=== PATIENT | female | born 1950 | race Two or more races ===

== ENCOUNTER → 2023-09-15 | Emergency (ER) | payer OTHER ==
[~2023-09-15] VITALS: Ht 154.9 cm; Wt 62.1 kg
[~2023-09-15] MED LIST: AMBIEN5 MG PO; ATACAND32 MG; CRESTOR20 MG; ELIQUIS5 MG; ZETIA10 MG
[2023-09-15 08:16] LABS: HEMOGLOBIN 14.4 g/dL (12.0-15.00); MEAN CELL VOLUME 87.5 fL (80.00-100.00); MEAN CORPUSCULAR HEMOGLOBIN 28.6 pg (27.00-32.0); MEAN CORPUSCULAR HGB CONC 32.7 g/dl (32.0-36.0); PLATELET COUNT 281 K/uL (150-450); RED BLOOD COUNT 5.03 M/uL (4.00-6.00); RED CELL DISTRIBUTION WIDTH 15.5 % (11.5-14.5)
[2023-09-15 08:22] LABS: CALCIUM 9.2 mg/dL (8.5-10.1); CREATININE SERUM 0.86 mg/dL (0.55-1.02); GFR 64.32; POTASSIUM 4.87 mEq/L (3.5-5.1)
== END | disposition home or self-care (01) ==
LOC: EDBD 05:13 → ER 05:13
DX: K52.9 Noninfective gastroenteritis and colitis, unspecified (principal); Z88.0 Allergy status to penicillin
CPT/HCPCS: 36415; 96365; 96372; 99284; J2405; J2765; J3490

== ENCOUNTER 2023-10-08 12:48 | Emergency (ER) | payer OTHER ==
[~2023-10-08] VITALS: Ht 154.9 cm; Wt 63.5 kg
[2023-10-08] MEDS ORDERED: TYLENOL ARTHRI650 MG PO (18:50)
[2023-10-08] MEDS ORDERED: MEDROLPACK PO (18:50)
== END 2023-10-08 19:18 | disposition home or self-care (01) ==
LOC: ER 12:48
DX: M79.662 Pain in left lower leg (principal); Z88.0 Allergy status to penicillin

== ENCOUNTER 2024-05-26 14:18 | Emergency (ER) | payer OTHER ==
[~2024-05-26] VITALS: Ht 154.9 cm; Wt 64.9 kg
[~2024-05-26 14:18] MED LIST changes: +MEDROLPACK PO; +TYLENOL ARTHRI650 MG PO
[2024-05-26] MEDS ORDERED: SERTRALINE20 MG/1 ML PO (14:37)
[2024-05-26] MEDS ORDERED: NORVASC2.5 M1 PO (14:37)
[2024-05-26] MEDS ORDERED: FOSAMAX70 MG PO (14:37)
[2024-05-26] MEDS ORDERED: FAMOTIDINE/PF 20 MG/2 ML VIAL IV ONE (16:15)
[2024-05-26] MEDS ORDERED: 0.9 % SODIUM CHLORIDE 500 ML IV ONE (16:15)
[2024-05-26 16:56] LABS: HEMATOCRIT 39.1 % (36.0-45.00); HEMOGLOBIN 13.1 g/dL (12.0-15.00); MEAN CELL VOLUME 86.4 fL (80.00-100.00); MEAN CORPUSCULAR HEMOGLOBIN 28.9 pg (27.00-32.0); MEAN CORPUSCULAR HGB CONC 33.4 g/dl (32.0-36.0); PLATELET COUNT 237 K/uL (150-450); RED BLOOD COUNT 4.53 M/uL (4.00-6.00); RED CELL DISTRIBUTION WIDTH 15.4 % (11.5-14.5)
[2024-05-26 17:24] LABS: URINE APPEARANCE Clear; URINE BILIRRUBIN Negative (NEGATIVE); URINE BLOOD Small; URINE COLOR Yellow; URINE GLUCOSE Negative (NEGATIVE); URINE KETONE Negative (NEGATIVE); URINE LEUKOCYTE Moderate; URINE NITRATE Negative; URINE PROTEIN 30 (NEGATIVE); URINE UROBILINOGEN 0.2 E.U./dl
[2024-05-26 17:25] LABS: URINE BACTERIA 4708.3 uL (0.0-1933); URINE EPITHELIAL CELLS 67.8 uL (0.0-38.8); URINE RBC 139.4 uL (0.0-20.8); URINE WBC 37.2 uL (0.0-23.2)
[2024-05-26 17:44] LABS: ALBUMIN 3.8 gm/dL (3.4-5.0); BILIRUBIN TOTAL 0.79 mg/dL (0.3-1.2); CALCIUM 9.8 mg/dL (8.5-10.1); CREATININE SERUM 0.73 mg/dL (0.55-1.02); GFR 77.72; GLOBULINA 3.8 G/DL (2.4-3.5); POTASSIUM 5.01 mEq/L (3.5-5.1); TOTAL PROTEIN 7.6 gm/dL (6.4-8.2)
[2024-05-26 17:45] LABS: URINE YEAST FEW /hpf
[2024-05-26] MEDS ORDERED: METRONIDAZOLE/SODIUM CHLORIDE 500 MG/100 ML PIGGYBACK IV ONE (17:45)
[2024-05-26] MEDS ORDERED: CIPROFLOXACIN IN 5 % DEXTROSE 400 MG/200 ML PIGGYBAG IV ONE (17:45)
[2024-05-26] MEDS ORDERED: KETOROLAC TROMETHAMINE 30 MG VIAL IV ONE (20:15)
[2024-05-26] MEDS ORDERED: PEPCID AC20 MG PO (20:40)
[2024-05-26] MEDS ORDERED: DICY20TA PO (20:40)
[2024-05-26] MEDS ORDERED: INTESTINEX680 M1 PO (20:40)
[2024-05-26] MEDS ORDERED: METRONIDAZOLE500 MG PO (20:40)
[2024-05-26] MEDS ORDERED: CIPRO500 MG PO (20:40)
[2024-05-26] MEDS ORDERED: PERCOGESIC EXT1 EACH PO (20:40)
== END 2024-05-26 21:52 ==
LOC: ER 14:18
PROVIDERS: General Practice; Nurse Practitioner Family
DX: K57.92 Diverticulitis of intestine, part unspecified, without perforation or abscess without bleeding (principal); R10.32 Left lower quadrant pain; R10.9 Unspecified abdominal pain; Z20.822 Contact with and (suspected) exposure to COVID-19; I10 Essential (primary) hypertension; Z88.0 Allergy status to penicillin
CPT/HCPCS: 36415; 74176; 96365; 99284; J0744; J1885; J3490 ×2; J7042

== ENCOUNTER 2024-08-17 12:43 | Inpatient (IN) | payer OTHER ==
[~2024-08-17] VITALS: Ht 152.4 cm; Wt 63.5 kg
[~2024-08-17 12:43] MED LIST changes: +CIPRO500 MG PO; +DICY20TA PO; +FOSAMAX70 MG PO; +INTESTINEX680 M1 PO; +METRONIDAZOLE500 MG PO; +NORVASC2.5 M1 PO; +PEPCID AC20 MG PO; +PERCOGESIC EXT1 EACH PO; +SERTRALINE20 MG/1 ML PO
[2024-08-17] MEDS ORDERED: SERTRALINE HCL25 MG PO (13:54)
--- NOTE | 2024-08-17 13:54 | NUR ---
PTE REFIERE DOOR ABDOMINAL Y INFLAMACION DE LOS DIVERTOULOS. PTE CON REFERIDO.
[2024-08-17] MEDS ORDERED: METRONIDAZOLE/SODIUM CHLORIDE 500 MG/100 ML PIGGYBACK IV ONE (14:30)
[2024-08-17] MEDS ORDERED: CIPROFLOXACIN IN 5 % DEXTROSE 400 MG/200 ML PIGGYBAG IV ONE (14:30)
[2024-08-17] MEDS ORDERED: FAMOTIDINE/PF 20 MG/2 ML VIAL IV ONE (14:30)
[2024-08-17] MEDS ORDERED: 0.9 % SODIUM CHLORIDE 500 ML IV ONE (14:30)
[2024-08-17] MEDS ORDERED: MEPERIDINE HCL/PF 25 MG/ML VIAL IM ONE (14:45)
[2024-08-17] MEDS ORDERED: ONDANSETRON HCL 2 MG/ML VIAL IV ONE (14:45)
--- NOTE | 2024-08-17 15:34 | NUR ---
SE REALIZA LABORATORIOS Y SE ADMINISTRA MEDICAMENTOS. SE OERIENTA A PTE QUIEN REFIERE [id number] Y ACEPTAR. PTE REHUSA TRATAMIENTO DE DEMEROL.
[2024-08-17 15:45] LABS: HEMATOCRIT 38.5 % (36.0-45.00); MEAN CELL VOLUME 85.6 fL (80.00-100.00); MEAN CORPUSCULAR HEMOGLOBIN 28.8 pg (27.00-32.0); MEAN CORPUSCULAR HGB CONC 33.6 g/dl (32.0-36.0); PLATELET COUNT 259 K/uL (150-450); RED CELL DISTRIBUTION WIDTH 15.6 % (11.5-14.5)
[2024-08-17 16:07] LABS: INR 1.05; PARTIAL THROMBOPLASTIN TIME 29.1 SECONDS (22.0-34.0); PROTHROMBIN TIME 11.4 SECONDS (9.0-11.5)
[2024-08-17 16:14] LABS: ALBUMIN 3.7 gm/dL (3.4-5.0); BILIRUBIN TOTAL 0.67 mg/dL (0.3-1.2); CALCIUM 9.1 mg/dL (8.5-10.1); CREATININE SERUM 0.72 mg/dL (0.55-1.02); GFR 78.96; GLOBULINA 3.2 G/DL (2.4-3.5); POTASSIUM 4.74 mEq/L (3.5-5.1); TOTAL PROTEIN 6.9 gm/dL (6.4-8.2)
[2024-08-17 18:27] LABS: URINE APPEARANCE Clear; URINE BILIRRUBIN Negative (NEGATIVE); URINE BLOOD Trace; URINE COLOR Yellow; URINE GLUCOSE Negative (NEGATIVE); URINE KETONE 15 (NEGATIVE); URINE LEUKOCYTE Moderate; URINE NITRATE Negative; URINE PROTEIN Trace (NEGATIVE); URINE UROBILINOGEN 0.2 E.U./dl
[2024-08-17 18:31] LABS: URINE BACTERIA 8062.6 uL (0.0-1933); URINE CAST 6.25 uL (0.0-1.40); URINE EPITHELIAL CELLS 131.2 uL (0.0-38.8); URINE RBC 27.9 uL (0.0-20.8); URINE WBC 235.9 uL (0.0-23.2)
[2024-08-17] MEDS ORDERED: 0.9 % SODIUM CHLORIDE 1,000 ML IV SCH (18:45)
[2024-08-17 19:00] LABS: URINE EPITHELIAL CELLS 0-4 /HPF
[2024-08-17] MEDS ORDERED: ACETAMINOPHEN 500 MG GEL..CAP PO PRN (19:15)
[2024-08-17] MEDS ORDERED: MORPHINE SULFATE 2 MG/ML CARTRIDGE IV SCH (20:00)
[2024-08-17] MEDS ORDERED: ZOLPIDEM TARTRATE 5 MG TABLET PO SCH (21:00)
[2024-08-17 23:59] VITALS: BP 104/69; O2SAT 96
[2024-08-18] MEDS ORDERED: METRONIDAZOLE/SODIUM CHLORIDE 100 ML IV SCH (01:00)
[2024-08-18 04:15] VITALS: BP 117/67; O2SAT 98
[2024-08-18] MEDS ORDERED: APIXABAN 5 MG TABLET PO SCH (05:00)
[2024-08-18] MEDS ORDERED: MORPHINE SULFATE 2 MG/ML CARTRIDGE IV PRN (08:00)
[2024-08-18 08:57] VITALS: BP 115/62; O2SAT 98
[2024-08-18] MEDS ORDERED: FAMOTIDINE/PF 20 MG in 0.9 % SODIUM CHLORIDE 8 ML IV PUSH SCH (09:00)
[2024-08-18] MEDS ORDERED: SERTRALINE HCL 25 MG TABLET PO SCH (09:00)
[2024-08-18] MEDS ORDERED: CIPROFLOXACIN IN 5 % DEXTROSE 200 ML IV SCH (09:00)
[2024-08-18] MEDS ORDERED: CANDESARTAN CILEXETIL 32 MG TABLET PO SCH (09:00)
[2024-08-18 16:47] VITALS: BP 124/69; O2SAT 96
[2024-08-18] MEDS ORDERED: AMLODIPINE BESYLATE 2.5 MG TABLET PO SCH (17:00)
[2024-08-18 23:00] VITALS: BP 106/55; O2SAT 97
[2024-08-19 08:00] VITALS: BP 106/59; O2SAT 96
[2024-08-19 08:04] LABS: HEMATOCRIT 37.4 % (36.0-45.00); HEMOGLOBIN 12.5 g/dL (12.0-15.00); MEAN CORPUSCULAR HEMOGLOBIN 29.4 pg (27.00-32.0); MEAN CORPUSCULAR HGB CONC 33.4 g/dl (32.0-36.0); PLATELET COUNT 243 K/uL (150-450); RED BLOOD COUNT 4.25 M/uL (4.00-6.00)
[2024-08-19] MEDS ORDERED: levoFLOXacin IN DEXTROSE 5 % 150 ML IV SCH (09:00)
[2024-08-19 09:25] LABS: BILIRUBIN TOTAL 0.36 mg/dL (0.3-1.2); CALCIUM 8.7 mg/dL (8.5-10.1); CREATININE SERUM 0.45 mg/dL (0.55-1.02); GFR 135.83; MAGNESIUM 2.3 mg/dL (1.8-2.4); PHOSPHOROUS 2.5 mg/dL (2.5-4.9); POTASSIUM 5.23 mEq/L (3.5-5.1)
[2024-08-19 15:51] LABS: CALCIUM 8.7 mg/dL (8.5-10.1); CREATININE SERUM 0.54 mg/dL (0.55-1.02); GFR 110.06; POTASSIUM 5.17 mEq/L (3.5-5.1)
[2024-08-19 16:36] LABS: C-REACTIVE PROTEIN 7.57 MG/DL (0.00-0.29)
[2024-08-19] MEDS ORDERED: CEFEPIME HCL 2,000 MG VIAL IV SCH (17:00)
[2024-08-19 17:14] VITALS: BP 118/71; O2SAT 96
[2024-08-20] VITALS: BP 126/66; O2SAT 98
[2024-08-20 08:05] VITALS: BP 126/71; O2SAT 100
[2024-08-20 16:00] VITALS: BP 160/85; O2SAT 99
[2024-08-20] MEDS ORDERED: AA 3.31 %/D9.8W/FAT/E-LYTES 10 2,053 ML IV SCH (17:00)
[2024-08-20 19:49] LABS: CALCIUM 8.8 mg/dL (8.5-10.1); CHOL HDL RATIO 2.1 (0-5.0); CREATININE SERUM 0.46 mg/dL (0.55-1.02); GFR 132.43; POTASSIUM 4.98 mEq/L (3.5-5.1)
[2024-08-20 23:12] VITALS: BP 133/82; O2SAT 96
[2024-08-21 08:16] VITALS: BP 121/81; O2SAT 97
[2024-08-21 14:08] VITALS: BP 126/73; O2SAT 95
[2024-08-21] MEDS ORDERED: RINGERS SOLUTION,LACTATED 1,000 ML IV SCH (15:30)
[2024-08-22] VITALS: BP 138/77; O2SAT 98
[2024-08-22 08:00] VITALS: BP 111/82; O2SAT 96
[2024-08-22 16:41] VITALS: BP 130/83; O2SAT 97
[2024-08-23] VITALS: BP 121/82; O2SAT 97
[2024-08-23 07:36] LABS: ALBUMIN 3.1 gm/dL (3.4-5.0); CALCIUM 9.5 mg/dL (8.5-10.1); CREATININE SERUM 0.49 mg/dL (0.55-1.02); GFR 123.12; MAGNESIUM 2.6 mg/dL (1.8-2.4); PHOSPHOROUS 2.1 mg/dL (2.5-4.9); POTASSIUM 3.92 mEq/L (3.5-5.1)
[2024-08-23 07:50] LABS: HEMATOCRIT 39.2 % (36.0-45.00); HEMOGLOBIN 13.4 g/dL (12.0-15.00); MEAN CELL VOLUME 85.1 fL (80.00-100.00); MEAN CORPUSCULAR HEMOGLOBIN 29.1 pg (27.00-32.0); MEAN CORPUSCULAR HGB CONC 34.2 g/dl (32.0-36.0); PLATELET COUNT 269 K/uL (150-450); RED BLOOD COUNT 4.61 M/uL (4.00-6.00); RED CELL DISTRIBUTION WIDTH 15.1 % (11.5-14.5)
[2024-08-23 08:00] VITALS: BP 155/82; O2SAT 97
[2024-08-23 16:47] VITALS: BP 139/82; O2SAT 95
[2024-08-24] VITALS: BP 135/83; O2SAT 95
[2024-08-24] MEDS ORDERED: POTASSIUM PHOS,M-BASIC-D-BASIC 15 MM in 0.9 % SODIUM CHLORIDE 250 ML IV ONE (02:00)
[2024-08-24 07:00] LABS: HEMATOCRIT 37.2 % (36.0-45.00); MEAN CELL VOLUME 84.3 fL (80.00-100.00); MEAN CORPUSCULAR HEMOGLOBIN 29.5 pg (27.00-32.0); PLATELET COUNT 258 K/uL (150-450); RED BLOOD COUNT 4.42 M/uL (4.00-6.00); RED CELL DISTRIBUTION WIDTH 15.5 % (11.5-14.5)
[2024-08-24 07:14] LABS: PARTIAL THROMBOPLASTIN TIME 25.7 SECONDS (22.0-34.0); PROTHROMBIN TIME 10.9 SECONDS (9.0-11.5)
[2024-08-24 07:35] LABS: ALBUMIN 3.1 gm/dL (3.4-5.0); ALKALINE PHOSPHATASE 50 U/L (50-136); ALT/SGPT 18 U/L (12-78); ANION GAP 9 (10.0-20.0); AST/SGOT 18 U/L (15-37); BILIRUBIN TOTAL 0.29 mg/dL (0.3-1.2); BILIRUBIN,CONJUGATED < 0.10 mg/dL (0.0-0.2); BILIRUBIN,UNCONJUGATED 0.19 mg/dL (0.0-0.6); BLOOD UREA NITROGEN 10 mg/dL (7-18); BUN CREA RATIO 26 (7.0-25.0); CALCIUM 8.5 mg/dL (8.5-10.1); CARBON DIOXIDE 31 mEq/L (21-32); CHLORIDE 108 mmol/L (98-107); CHOL HDL RATIO 3.7 (0-5.0); CHOLESTEROL 121 mg/dL (0-200); CREATININE SERUM 0.38 mg/dL (0.55-1.02); GFR 165.09; GLOBULINA 2.6 G/DL (2.4-3.5); GLUCOSE FASTING 115 mg/dL (65-100); HDL 33 mg/dl (40-60); LDL 36 mg/dl (0-130); OSMOLALITY SERUM 289 MOSM/KG (275-295); PHOSPHOROUS 3.1 mg/dL (2.5-4.9); POTASSIUM 3.39 mEq/L (3.5-5.1); SODIUM 145 mmol/L (136-145); TOTAL PROTEIN 5.7 gm/dL (6.4-8.2); VLDL 52 (0-39)
[2024-08-24 07:38] LABS: TRIGLYCERIDES 262 mg/dL (0-150)
[2024-08-24 08:00] VITALS: BP 150/90; O2SAT 98
[2024-08-24] MEDS ORDERED: CIPRO500 MG PO (08:57)
[2024-08-24] MEDS ORDERED: METRONIDAZOLE500 MG PO (08:59)
[2024-08-24] MEDS ORDERED: ELIQUIS5 MG PO (09:01)
[2024-08-24] MEDS ORDERED: ATACAND32 MG PO (09:02)
[2024-08-24] MEDS ORDERED: NORVASC2.5 M1 PO (09:02)
[2024-08-24] MEDS ORDERED: ZETIA10 MG PO (09:03)
[2024-08-24] MEDS ORDERED: ROSUVASTATIN CA20 MG PO (09:04)
[2024-08-24] MEDS ORDERED: SERTRALINE HCL25 MG PO (09:05)
[2024-08-24] MEDS ORDERED: ZOLPIDEM TARTRAT5 MG PO (09:05)
[2024-08-24] MEDS ORDERED: FOSAMAX70 MG PO (09:08)
[2024-08-24] MEDS ORDERED: DICY20TA PO (09:08)
== END 2024-08-24 13:07 | disposition home or self-care (01) | DRG 392 ==
LOC: ER 12:43 → SURH 20:17 → SEC-K 20:17 → SURG 08-18 02:00 → SURH 08-18 03:41
PROVIDERS: Internal Medicine; Internal Medicine Infectious Disease; Nurse Practitioner Family; ADMIT Internal Medicine; ATTEND Internal Medicine
PROC: BW21YZZ Computerized Tomography (CT Scan) of Abdomen and Pelvis using Other Contrast (ICD-10-PCS; 2024-08-17)
PROC: 02HV33Z Insertion of Infusion Device into Superior Vena Cava, Percutaneous Approach (ICD-10-PCS; principal; 2024-08-19)
PROC: BW21ZZZ Computerized Tomography (CT Scan) of Abdomen and Pelvis (ICD-10-PCS; 2024-08-22)
DX: K57.32 Diverticulitis of large intestine without perforation or abscess without bleeding (principal); I10 Essential (primary) hypertension